=== PATIENT | female | born 2005 | race Caucasian/White ===

== ENCOUNTER 2023-04-14 15:54 | Observation (INO) | payer OTHER ==
[2023-04-14 17:12] VITALS: RESP 20; O2SAT 98
[2023-04-14 17:41] VITALS: BP 112/83; PULSE 116; TEMP 98.3
== END 2023-04-14 17:30 | disposition home or self-care (01) ==
LOC: ICU 15:54
PROVIDERS: ADMIT Obstetrics & Gynecology; ATTEND Obstetrics & Gynecology
DX: Z34.03 Encounter for supervision of normal first pregnancy, third trimester (principal); Z3A.37 37 weeks gestation of pregnancy
CPT/HCPCS: G0378; G0379

== ENCOUNTER 2024-06-05 18:53 | Emergency (ER) | payer OTHER ==
[2024-06-05 19:32] VITALS: RESP 18; TEMP 99.4; O2SAT 98
[2024-06-05 19:56] LABS: Group A Strep DETECTED (NEGATIVE)
--- NOTE | 2024-06-05 20:07 | ERPHSYRPT ---
- History of Present Illness Time Seen by Provider: 06/05/24 20:05 Source: patient Exam Limitations: no limitations Patient Subjective Stated Complaint: exposed to high levels of ammonia last week, difficulty swallowing, cough, swelling in throat Triage Nursing Assessment: Pt ambulated into ER without diff, friend at bedside. Pt c/o cough, difficulty swallowing, and "feels like my throat/lymph nodes are swollen". Pt was exposed to high levels of ammonia last week from urine from a child and has had these issues ever since. No cough noted while pt has been in ER. Lungs clear, heart tones reg. No sob or difficulty breathing noted. Pt si tting up in bed talking without difficulty. Physician History: 18-year-old female presents to our ED for evaluation of sore throat and a cough. No chest pain or shortness of breath. Patient advises that she has been exposed to "ammonia" from urine in her home. No fever no nausea no vomiting no diarrhea no rash. Symptoms are mild to moderate in intensity. No specific worsening improving factors. Patient voices no other complaints or concerns at this time. Portions of this note were created with voice recognition technology. There may be grammatical, spelling, punctuation or sound alike errors Timing/Duration: week(s) (1 week) Severity: moderate Modifying Factors: Improves With: nothing Associated Symptoms: denies symptoms Allergies/Adverse Reactions: No Known Drug Allergies Allergy (Unverified 06/05/24 19:39) Hx Tetanus, Diphtheria Vaccination/Date Given: No Hx Influenza Vaccination/Date Given: No Hx Pneumococcal Vaccination/Date Given: No Travel Risk - International Travel Have you traveled outside of the country in past 3 weeks: No - Emerging Infectious Disease Are you exhibiting symptoms associated with any current EIDs: Yes Symptoms: Cough: New Onset - Review of Systems Constitutional: No Symptoms, No Fever, No Chills Eyes: No Symptoms Ears, Nose, & Throat: No Symptoms Respiratory: No Symptoms, No Cough, No Dyspnea Cardiac: No Symptoms, No Chest Pain, No Edema, No Syncope Abdominal/Gastrointestinal: No Symptoms, No Abdominal Pain, No Nausea, No Vomiting, No Diarrhea Genitourinary Symptoms: No Symptoms, No Dysuria Musculoskeletal: No Symptoms, No Back Pain, No Neck Pain Skin: No Symptoms, No Rash Neurological: No Symptoms, No Dizziness, No Focal Weakness, No Sensory Changes Psychological: No Symptoms Endocrine: No Symptoms Hematologic/Lymphatic: No Symptoms Immunological/Allergic: No Symptoms All Other Systems: Reviewed and Negative - Past Medical History Pertinent Past Medical History: Yes Respiratory History: Bronchitis Musculoskeletal History: Fractures Psycho-Social History: Anxiety, Depression, Other Other Medical History: croup. bilat elbows--dislocation multiple. anger issues - Past Surgical History Past Surgical History: Yes Other Surgical History: closed reduction of elbow from dilocation - Female History Hx Last Menstrual Period: . Hx Now: No - Social History Smoking Status: Never smoker Exposure to second hand smoke: No Drug Use: none Patient Lives Alone: No - Social Determinants of Health Will the patient participate in the screening: Yes Do you worry about a steady place to live?: No Do you have any problems with any of the following?: No known problems In the past 12 months,have you had to go without utilities?: No Transportation Issues: No Has anyone in your support network made you feel unsafe?: No Have you or anyone in your house had to go without enough: No - Nursing Vital Signs Nursing Vital Signs: Initial Vital Signs Temperature 99.4 F 06/05/24 18:54 Pulse Rate 85 06/05/24 18:54 Respiratory Rate 18 06/05/24 18:54 Blood Pressure 125/76 06/05/24 18:54 O2 Sat by Pulse Oximetry 98 06/05/24 18:54 Pain Scale Pain Intensity 7 - Physical Exam General Appearance: no apparent distress, alert Eye Exam: PERRL/EOMI, eyes nml inspection Ears, Nose, Throat Exam: normal ENT inspection, TMs normal, pharynx normal, moist mucous membranes, other (Bilaterally enlarged tonsils. No sublingual masses. No COMMUNITY HEALTH EDUCATION COORDINATOR observed.) Neck Exam: normal inspection, non-tender, supple, full range of motion Respiratory Exam: normal breath sounds, lungs clear, No respiratory distress Cardiovascular Exam: regular rate/rhythm, normal heart sounds, normal peripheral pulses Gastrointestinal/Abdomen Exam: soft, normal bowel sounds, No tenderness, No mass Back Exam: normal inspection, normal range of motion, No CVA tenderness, No vertebral tenderness Extremity Exam: normal inspection, normal range of motion, pelvis stable Neurologic Exam: alert, oriented x 3, cooperative, normal mood/affect, sensation nml, No motor deficits Skin Exam: normal color, warm, dry, No rash Lymphatic Exam: No adenopathy SpO2 Interpretation: normal SpO2: 98 O2 Delivery: Room Air - Course Nursing assessment & vital signs reviewed: Yes Ordered Tests: Medication Summary Discontinued Medications Generic Name Dose Route Start Last Admin Trade Name Ene PRN Reason Stop Dose Admin Amoxicillin/Clavulanate Potassium 875 mg 06/05/24 20:04 Amox Tr/Potassium Clavulanate 875 Mg Tablet PO 06/05/24 20:05 STAT ONE Lab/Rad Data: Laboratory Results 06/05/24 Range/Units 19:15 Influenza Type A Ag Pending Influenza Type B Ag Pending RSV (PCR) Pending SARS-CoV-2 (PCR) Pending Group A Strep Antibody DETECTED (NEGATIVE) - Progress Progress: improved Progress Note: 18-year-old female presents to our ED for evaluation of a sore throat and a cough. Physical exam reveals bilaterally enlarged tonsils. Lungs are clear. Rapid strep positive. Patient received a oral dose of Augmentin in our ED. MOTRIN ADMINISTERED WELL. A prescription for Augmentin forwarded to patient's pharmacy. [id number] analgesics as needed. No indication for further workup will discharge home. Patient agrees to follow-up with her primary care doctor within 48 hours for reevaluation. Portions of this note were created with voice recognition technology. There may be grammatical, spelling, punctuation or sound alike errors Complexity of problem addressed is moderate acute complicated no critical care time. Complex of data reviewed and analyzed is moderate. Test ordered chest reviewed results analyzed and correlated clinically with history and physical exam. Risk of complication and or risk of morbidity/mortality of patient management is moderate. A prescription for Augmentin forwarded to patient's pharmacy.. Vital stable. Time spent to discharge patient is approximately 15 minutes. Plan of care established for shared decision making. No social determinants of health present to impede follow-up. Portions of this note were created with voice recognition technology. There may be grammatical, spelling, punctuation or sound alike errors 06/05/24 20:08 Counseled pt/family regarding: lab results, diagnosis, need for follow-up - Departure Departure Disposition: Home Clinical Impression: Strep throat, Strep tonsillitis Condition: Stable Critical Care Time: No Referrals: DOCTOR,NO FAMILY [Primary Care Provider] - Follow up/PCP as directed CHAS TRINIDAD DO [ACTIVE STAFF] - Follow up/PCP as directed Additional Instructions: Discharge/Care Plan ENZO MARTINEZ was seen on 06/05/24 in the Emergency Room. The patient was counseled regarding Diagnosis,Lab results, Imaging studies, need for follow up and when to return to the Emergency Room. Prescriptions given: Discharge Note I have spoken with the patient and/or caregivers. I have explained the patient's condition, diagnosis and treatment plan based on the information available to me at this time. I have answered the patient's and/or caregiver's questions and addressed any concerns. The patient and/or caregivers have as good understanding of the patient's diagnosis, condition and treatment plan as can be expected at this point. The vital signs have been stable. The patient's condition is stable and appropriate for discharge from the emergency department. The patient will pursue further outpatient evaluation with the primary care physician or other designated or consulting physician as outlined in the discharge instructions. The patient and/or caregivers are agreeable to this plan of care and follow-up instructions have been explained in detail. The patient and/or caregivers have received these instruction. The patient/and or caregivers are aware that any significant change in condition or worsening of symptoms should prompt an immediate return to this or the closest emergency department or call 911. Prescriptions: Amox Tr/Potass Clav. 875 mg [Augmentin 875-125 Tablet] 875 mg PO BID 7 Days #14 tablet
[2024-06-05 20:09] LABS: INFLUENZA A NEGATIVE (NEGATIVE); INFLUENZA B NEGATIVE (NEGATIVE); RESPIRATORY SYNCTIAL VIRUS NEGATIVE (NEGATIVE); SARS-CoV-2 Xpert Express NEGATIVE (NEGATIVE)
[2024-06-05] MEDS: Augmentin 875-125 Tablet PO ONE (20:09)
[2024-06-05] MEDS ORDERED: Augmentin 875-125 Tablet ONE (20:09)
[2024-06-05] MEDS ORDERED: MOTRIN 600 MG ONE (20:09)
[2024-06-05] MEDS: MOTRIN 600 MG PO ONE (20:10)
[2024-06-05 20:14] VITALS: BP 127/91; PULSE 75
== END 2024-06-05 20:19 | disposition home or self-care (01) ==
LOC: ED 18:53
DX: J03.00 Acute streptococcal tonsillitis, unspecified (principal); R05.9 Cough, unspecified; Z79.899 Other long term (current) drug therapy
CPT/HCPCS: 0241U; 87651; 99283; A9270-GY